=== PATIENT | male | born 1945 | race Caucasian/White ===

== ENCOUNTER 2016-05-27 11:21 | Emergency (ER) | payer MEDICARE, OTHER ==
[~2016-05-27] VITALS: Ht 182.9 cm; Wt 78.0 kg
[2016-05-27 11:44] VITALS: BP 138/96
[2016-05-27] MEDS ORDERED: Aspirin Baby 81mg ORAL ONE (12:00)
[2016-05-27 12:29] LABS: BASOPHILS % (AUTO) 1.1 % (0.0-2.0); EOSINOPHILS % (AUTO) 1.7 % (0.0-3.0); MEAN CORPUSCULAR HEMOGLOBIN 28.9 PG (27.0-31.0); MEAN CORPUSCULAR HGB CONC 32.1 G/DL (32.0-36.0); MEAN CORPUSCULAR VOLUME 90 FL (80-99); MEAN PLATELET VOLUME 10.5 FL (6.5-10.1); MONOCYTES % (AUTO) 7.5 % (1.0-10.0); NEUTROPHILS % (AUTO) 70.8 % (45.0-75.0); PLATELET COUNT 193 K/UL (150-450); RED BLOOD COUNT 6.24 M/UL (4.70-6.10); RED CELL DISTRIBUTION WIDTH 11.8 % (11.6-14.8); WHITE BLOOD COUNT 8.3 K/UL (4.8-10.8)
[2016-05-27 12:31] VITALS: BP 118/79
[2016-05-27 12:41] LABS: ALANINE AMINOTRANSFERASE 16 U/L (3-41); ALBUMIN/GLOBULIN RATIO 1.8 (1.0-2.7); ANION GAP 12 (5-15); ASPARTATE AMINO TRANSFERASE 22 U/L (5-40); CALCIUM 9.8 mg/dL (8.6-10.2); CARBON DIOXIDE 31 mEQ/L (20-30); CHLORIDE 100 mEQ/L (98-107); CREATININE 1.1 mg/dL (0.7-1.2); GLOMERULAR FILTRATION RATE > 60 mL/min (>60); POTASSIUM 4.9 mEQ/L (3.4-4.9); SODIUM 143 mEQ/L (135-145); TOTAL PROTEIN 6.6 g/dL (6.6-8.7); TROPONIN I < 0.30 ng/mL (<=0.30)
[2016-05-27 12:53] LABS: HEMOLYSIS 10
[2016-05-27 13:10] LABS: CKMB 5.6 ng/mL (< 6.7)
[2016-05-27 13:22] VITALS: BP 112/65
[2016-05-27 13:23] VITALS: BP 107/63
[2016-05-27 13:24] VITALS: BP 100/66
[2016-05-27 13:26] VITALS: BP 100/66
--- NOTE | 2016-05-27 13:30 | Emergency Room Report ---
History of Present Illness General Chief Complaint: Dyspnea/Respdistress Source: Patient Present Illness HPI Patient is a 71-year-old male who presented after increased difficulty breathing. Patient gradual onset of symptoms over the past 3 days. Patient had noted his blood pressure was markedly elevated. Patient states he did not take any additional doses of his medications. Patient was seen at his doctor's office this morning and was noted to have a low blood pressure. The patient stated that he takes medications at night. He reported urinating a lot over the past 2 days. He reports feeling somewhat short of breath. He denies any pain to his calves. He reports having some left ankle pain Allergies: Coded Allergies: No Known Allergies (Unverified , 05/27/16) Patient History Past Medical History: see triage record Reviewed Nursing Documentation: PMH: Agreed, PSxH: Agreed Nursing Documentation-PMH Past Medical History: No History, Except For Hx Hypertension: Yes Hx Neurological Problems: Yes - chronic pain, Review of Systems All Other Systems: negative except mentioned in HPI Physical Exam Vital Signs Date Time Temp Pulse Resp B/P Pulse Ox O2 Delivery O2 Flow Rate FiO2 05/27/16 11:24 97.9 109 24 138/96 97 Room Air Sp02 EP Interpretation: reviewed, normal General Appearance: normal inspection, well appearing, no apparent distress, alert, GCS 15, non-toxic Head: atraumatic ENT: normal ENT inspection, hearing grossly normal, normal voice Neck: normal inspection, full range of motion, supple, no bony tend Respiratory: normal inspection, lungs clear, normal breath sounds, no respiratory distress, no retraction, no wheezing Cardiovascular #1: regular rate, rhythm, no edema Cardiovascular #2: 2+ femoral (R), 2+ femoral (L) Gastrointestinal: normal inspection, normal bowel sounds, non tender, soft, no guarding, no hernia Genitourinary: no CVA tenderness Musculoskeletal: normal inspection, back normal, normal range of motion Neurologic: normal inspection, alert, responsive, hose maker III-XII nml as tested, speech normal Psychiatric: normal inspection, judgement/insight normal, mood/affect normal Skin: normal inspection, normal color, no rash Medical Decision Making Diagnostic Impression: Primary Impression: Chest pain ER Course Patient presented for shortness of breath Differential included but was not limited to anemia, pneumonia, pneumothorax, myocardial infarction, pericardial effusion, congestive heart failure, acidosis. A chest x-ray one view interpreted by me showed normal cardiac size without evident infiltrate. The patient was noted to have improvement in his blood pressure throughout ER course. Patient was advised to continue taking aspirin. Orthostatic blood pressures were unremarkable. Because of patient's risk for cardiac disease. Patient was advised to remain in the hospital for further cardiac testing. The patient was advised risk benefits alternatives of leaving AGAINST MEDICAL ADVICE and he indicated understanding and all questions are answered patient still continued want to leave and signed AGAINST MEDICAL ADVICE. Despite risks including but not limited to disability and worsening of current lifestyle.Patient was advised he could return at anytime. Labs Test 05/27/16 11:56 White Blood Count 8.3 K/UL (4.8-10.8) Red Blood Count 6.24 M/UL (4.70-6.10) Hemoglobin 18.1 G/DL (14.2-18.0) Hematocrit 56.3 % (42.0-52.0) Mean Corpuscular Volume 90 FL (80-99) Mean Corpuscular Hemoglobin 28.9 PG (27.0-31.0) Mean Corpuscular Hemoglobin Concent 32.1 G/DL (32.0-36.0) Red Cell Distribution Width 11.8 % (11.6-14.8) Platelet Count 193 K/UL (150-450) Mean Platelet Volume 10.5 FL (6.5-10.1) Neutrophils (%) (Auto) 70.8 % (45.0-75.0) Lymphocytes (%) (Auto) 19.0 % (20.0-45.0) Monocytes (%) (Auto) 7.5 % (1.0-10.0) Eosinophils (%) (Auto) 1.7 % (0.0-3.0) Basophils (%) (Auto) 1.1 % (0.0-2.0) Sodium Level 143 mEQ/L (135-145) Potassium Level 4.9 mEQ/L (3.4-4.9) Chloride Level 100 mEQ/L (98-107) Carbon Dioxide Level 31 mEQ/L (20-30) Anion Gap 12 (5-15) Blood Urea Nitrogen 18 mg/dL (7-23) Creatinine 1.1 mg/dL (0.7-1.2) Estimat Glomerular Filtration Rate > 60 mL/min (>60) Glucose Level 125 mg/dL (74-106) Calcium Level 9.8 mg/dL (8.6-10.2) Total Bilirubin 0.4 mg/dL (0.0-1.2) Aspartate Amino Transf (AST/SGOT) 22 U/L (5-40) Alanine Aminotransferase (ALT/SGPT) 16 U/L (3-41) Alkaline Phosphatase 48 U/L (40-129) Total Creatine Kinase 167 U/L (38-174) Creatine Kinase MB 5.6 ng/mL (< 6.7) Creatine Kinase MB Relative Index 3.3 Troponin I < 0.30 ng/mL (<=0.30) Pro-B-Type Natriuretic Peptide 147 pg/mL (0-125) Total Protein 6.6 g/dL (6.6-8.7) Albumin 4.3 g/dL (3.5-5.2) Globulin 2.3 g/dL Albumin/Globulin Ratio 1.8 (1.0-2.7) EKG Diagnostic Results Rate: normal Rhythm: NSR ST Segments: no acute changes Rhythm Strip Diag. Results EP Interpretation: yes Rhythm: NSR, no PVC's, no ectopy Chest X-Ray Diagnostic Results EP Interpretation: Yes Findings: no consolidation, no effusion, no pneumothorax, no acute cardiopulmonary disease Number of Views: 1 Last Vital Signs Date Time Temp Pulse Resp B/P Pulse Ox O2 Delivery O2 Flow Rate FiO2 05/27/16 13:22 80 17 112/65 97 Room Air 05/27/16 11:44 97.9 Status: improved Disposition: AGAINST MEDICAL ADVICE Condition: Stable Patient Instructions: Shortness of Breath, [id number] Bob Singleton May 27, 2016 13:30
--- NOTE | 2016-05-27 16:07 | Diagnostic Imaging Report ---
Indication: SOB Technique: One view of the chest Comparison: none Findings: Lungs and pleural spaces are clear. Heart size is normal. There is cervical spine fusion hardware incidentally noted Impression: No acute process
== END 2016-05-27 13:37 | disposition left against medical advice (07) ==
LOC: EMR 12:00
DX: R07.9 Chest pain, unspecified (principal); R06.00 Dyspnea, unspecified; I10 Essential (primary) hypertension; G89.29 Other chronic pain
CPT/HCPCS: 36415; 71010; 80053; 82550; 82553; 83880; 84484; 85025; 93005; 96374; 99284; J7040

== ENCOUNTER 2016-06-03 19:06 | Emergency (ER) | payer MEDICARE ==
[~2016-06-03] VITALS: Ht 185.4 cm; Wt 78.0 kg
[2016-06-03 19:52] VITALS: BP 142/68
--- NOTE | 2016-06-03 20:48 | Emergency Room Report ---
History of Present Illness General Chief Complaint: Pain Source: Patient Present Illness HPI 71 YO Male presents emergency department complaining of 6/10 in severity severe posterior calf pain with ankle swelling x2 hours. Patient states over the course of the past 4 days he has noted intermittent dull aches in the posterior calf. Patient states while grocery shopping he experienced sudden onset sharp posterior calf pain and noted his legs began to swell. Patient denies trauma or fall. Patient also states that his blood pressures been elevated. Patient states that the severe sharp pain has subsided at this time and this returned to the baseline dull ache. Denies skin color changes, erythema, , swollen veins, recent travel. Patient denies history of cancer or recent immobilization. Denies numbness tingling or loss of sensation or gross motor movements of the extremities, incontinence of bowel or bladder. Denies CP, Palpitations, LOC, AMS, dizziness, Changes in Vision, Sensation, paresthesias, or a sudden severe headache. Pt states he applied compression stocking to help with swelling. Allergies: Coded Allergies: No Known Allergies (Unverified , 05/27/16) Patient History Past Medical History: see triage record Past Surgical History: none Pertinent Family History: none Immunizations: UTD Reviewed Nursing Documentation: PMH: Agreed, PSxH: Agreed Nursing Documentation-PMH Hx Hypertension: Yes Hx Neurological Problems: Yes - chronic pain, Review of Systems All Other Systems: negative except mentioned in HPI Physical Exam Vital Signs Date Time Temp Pulse Resp B/P Pulse Ox O2 Delivery O2 Flow Rate FiO2 06/03/16 19:30 98.8 65 18 147/67 97 Room Air Sp02 EP Interpretation: reviewed, normal General Appearance: no apparent distress, alert, GCS 15, non-toxic Head: normocephalic, atraumatic Eyes: bilateral eye PERRL, bilateral eye normal inspection ENT: hearing grossly normal, normal pharynx, no angioedema, normal voice Neck: full range of motion, supple/symm/no masses Respiratory: chest non-tender, lungs clear, normal breath sounds, speaking full sentences Cardiovascular #1: regular rate, rhythm, no edema Cardiovascular #2: 2+ dorsalis pedis (R), 2+ dorsalis pedis (L) Rectal: deferred Musculoskeletal: back normal, gait/station normal, normal range of motion, tender - posterior left calf TTP. Neurologic: alert, oriented x3, responsive, motor strength/tone normal, sensory intact, speech normal Psychiatric: judgement/insight normal, memory normal, mood/affect normal Skin: normal color, no rash, warm/dry, well hydrated Medical Decision Making PA Attestation Dr. Amin is my supervising Physician whom patient management has been discussed with. ER Course 71 YO Male presents emergency department complaining of 6/10 in severity severe posterior calf pain with ankle swelling x2 hours. Patient states over the course of the past 4 days he has noted intermittent dull aches in the posterior calf. Patient states while grocery shopping he experienced sudden onset sharp posterior calf pain and noted his legs began to swell. Patient denies trauma or fall. Patient also states that his blood pressures been elevated. Patient states that the severe sharp pain has subsided at this time and this returned to the baseline dull ache. Denies skin color changes, erythema, , swollen veins, recent travel. Patient denies history of cancer or recent immobilization. Pt states he applied compression stocking to help with swelling. Ddx considered but are not limited to Cellulitis, DVT, varicose vein, PAD, Venous insufficiency, muscle strain Vital signs: are WNL, pt. is afebrile H&PE are most consistent with Possible DVT will do US. ORDERS: Venous Duplex US Left leg: Pending ED INTERVENTIONS: -Pt declines medication for pain at this time. DISPOSITION: PT. ELOPED. Last Vital Signs Date Time Temp Pulse Resp B/P Pulse Ox O2 Delivery O2 Flow Rate FiO2 06/03/16 19:52 98.8 87 18 142/68 97 Room Air Disposition: [facility]AKIT[facility] Signed Out To: Dr. Paez. Karissa Portillo Jun 03, 2016 20:48
[2016-06-03 21:47] VITALS: BP 142/68
== END 2016-06-03 21:47 | disposition left against medical advice (07) ==
LOC: EMR 19:52
DX: M79.662 Pain in left lower leg (principal); M79.89 Other specified soft tissue disorders; G89.29 Other chronic pain; I10 Essential (primary) hypertension
CPT/HCPCS: 99282